=== PATIENT | female | born 1970 | race Caucasian/White ===

== ENCOUNTER → 2018-01-28 | Outpatient (CLI) | payer OTHER ==
[~2018-01-28] MED LIST: 100CC Multi-Ad1 EACH; AZIT250 PO; BUPR100 PO; CEPH500 PO; CITA20 PO; CLON.5 PO; CYCL10 PO; DIAZ5 PO; DICL75ER PO; DOXY100T53 PO; HYDACE7.5 PO; Janumet 50-1,01 EACH PO; LEVSOD200 PO; LEVSOD50 PO; METF500 PO; OMEP20ER PO; OXYB5 PO; PROCODE120 PO; Pyridium200 MG PO; SULTRIDS PO; Sudogest30 MG PO; Ventolin/Prove6.7 GM INH
== END ==
LOC: LAB SHORT 13:33 → LAB 13:33
DX: Z11.3 Encounter for screening for infections with a predominantly sexual mode of transmission (principal)
CPT/HCPCS: 87070; 87077; 87186; 87205